=== PATIENT | female | born 1975 | race Caucasian/White ===

== ENCOUNTER 2019-06-27 08:41 | Emergency (ER) | payer SELFPAY ==
[2019-06-27 09:37] LABS: Bacteria/HPF None Seen HPF (None Seen); Bilirubin Negative (Negative); Blood, Urine Negative (Negative); Clarity Clear (Clear); Glucose, Urine (Dipstick) Normal (Negative); Leukocyte 25 Leu/uL (Negative); Nitrite Negative (Negative); Protein, Urine (Dipstick) Negative (Neg-Trace); RBC/HPF 0-3 HPF (0-3); Squamous Epithelial 0-3 HPF (0-3); Urobilinogen Normal mg/dL (Less than 2); WBC/HPF None Seen HPF (0-3)
[2019-06-27 10:18] LABS: Pregnancy Test - Urine (BHCG) Negative (Negative); Pregu Control Background? CLEAR/WHITE (CLR/WHITE); Pregu Control Bar Appear? YES (CONTROL BAR); Specific Gravity 1.003 (1.002-1.036)
[2019-06-27] MEDS ORDERED: Lidocaine 1% PF 5 ML VIAL ONE (10:21)
[2019-06-27] MEDS ORDERED: Azithromycin 250 MG TAB ONE (10:21)
[2019-06-27] MEDS ORDERED: metroNIDAZOLE 250 MG TAB ONE (10:21)
[2019-06-27] MEDS ORDERED: cefTRIAXone\\ROCEPHIN 250 MG VIAL ONE (10:21)
[2019-06-28 23:07] LABS: Chlamydia by PCR Not Detected (NotDetected); GC by PCR Not Detected (NotDetected)
== END 2019-06-27 11:04 | disposition home or self-care (01) ==
LOC: ERS 08:41
DX: N89.8 Other specified noninflammatory disorders of vagina (principal); J45.909 Unspecified asthma, uncomplicated; Z79.899 Other long term (current) drug therapy
CPT/HCPCS: 81003; 81015; 81025; 87480; 87491; 87510; 87591; 87660; 96372; 99284; J0696; J2001